=== PATIENT | female | born 1975 | race Caucasian/White ===

== ENCOUNTER 2016-11-26 13:39 | Emergency (ER) | payer SELFPAY ==
--- NOTE | 2016-11-26 13:53 | EDM.PDOC ---
ED HPI GI/ABDOMINAL - General Chief Complaint: Gastrointestinal Problem Stated Complaint: ABDOMINAL PAIN AND NAUSEA Time Seen by Provider: 11/26/16 13:49 Source of Information: Reports: Patient History Limitations: Reports: No limitations - History of Present Illness INITIAL COMMENTS - FREE TEXT/NARRATIVE: HISTORY AND PHYSICAL: History of present illness: [Patient comes to the emergency room complaining of abdominal pain and bloating. She has history of cholecystectomy in 2008. She has experienced "phantom gallbladder pains" since her surgery. Typically these pains last a couple of hours and resolve without incident. Takes tramadol that she has at home for when these pains occur. Today she is complaining of abdominal discomfort for the past 3 days. She describes the pain as being in in a horseshoe shape from her epigastric area down both sides of her abdomen. Pain radiates through to her mid back. She's also had some lower abdominal discomfort. Complains of a bloating in her abdomen. She's had episodes of vomiting, though none today. She hasn't felt well for the past several weeks and has had various cold symptoms. She had some diarrhea a couple of days ago but this resolved with taking Imodium. Today she is feeling mildly constipated and quite bloated. She took several tablets of Gas-X. She denies recent fever and chills. She's had no chest pain, shortness of breath or difficulty breathing. No swelling in her feet or lower legs. Has history of rheumatoid arthritis. Surgical history includes tonsillectomy, appendectomy, cholecystectomy, abdominal removal x2] Review of systems: As per history of present illness and below otherwise all systems reviewed and negative. Past medical history: As per history of present illness and as reviewed below otherwise noncontributory. Surgical history: As per history of present illness and as reviewed below otherwise noncontributory. Social history: No reported history of drug or alcohol abuse. Family history: As per history of present illness and as reviewed below otherwise noncontributory. Physical exam: HEENT: Atraumatic, normocephalic. Oral mucous membranes are pink and moist. Throat is clear. No lymphadenopathy, neck is supple. Lungs: Clear to auscultation, breath sounds equal bilaterally. Heart: S1S2, regular rate and rhythm. No murmur gallop click or rub. Abdomen: Bowel sounds are normoactive throughout. Abdomen is mildly distended. She is tender over the epigastric area, left upper right upper quadrants and suprapubic area. No masses guarding or rebound. Negative for costovertebral tenderness. Pelvis: Stable nontender. Genitourinary: Deferred. Rectal: Deferred. Extremities: Atraumatic, negative for cords or calf pain. No cyanosis or edema to feet or lower legs. Neurovascular unremarkable. Neuro: Awake, alert, oriented. Motor and sensory unremarkable throughout. Exam nonfocal. Diagnostics: [CBC, CMP, UA, urine , lipase, amylase, abdominal x-ray] Therapeutics: [IV normal saline 1 L IV] Impression: [Abdominal pain] Plan: [Discussed with patient that her lab results show no pancreatitis, infection, anemia or other abnormality. Her abdominal x-ray shows some gas but no constipation or obstruction. Discussed that her symptoms may of started with gastroenteritis and that her bloating developed from taking Imodium and Gas-X. Recommend she hold these medications push fluids brat diet and establish care with a local PCP. She is in agreement with today's plan all of her questions are answered and concerns are addressed.] Definitive disposition and diagnosis as appropriate pending reevaluation and review of above. - Related Data Allergies/ADRs: Allergies Allergy/AdvReac Type Severity Reaction Status Date / Time amoxicillin Allergy Anaphylactic Verified 11/26/16 13:54 Shock atropine [From Lomotil] Allergy Rash Verified 11/26/16 13:55 diphenoxylate [From Lomotil] Allergy Rash Verified 11/26/16 13:55 hydromorphone [From Dilaudid] Allergy Rash Verified 11/26/16 13:54 iodine Allergy Rash Verified 11/26/16 13:55 latex Allergy Rash Verified 11/26/16 13:55 penicillin G Allergy Anaphylactic Verified 11/26/16 13:54 Shock shellfish derived Allergy Rash Verified 11/26/16 13:55 Home Meds: Home Meds . [No Known Home Meds] 11/26/16 [History] ED ROS GENERAL - Review of Systems Review Of Systems: ROS reveals no pertinent complaints other than HPI. ED EXAM, GI/ABD - Physical Exam Exam: See Below Course - Vital Signs Last Recorded V/S: Last Vital Signs Temp 97.7 F 11/26/16 13:56 Pulse 95 11/26/16 13:56 Resp 18 11/26/16 13:56 BP 136/78 11/26/16 13:56 Pulse Ox 98 11/26/16 13:56 - Orders/Labs/Meds Orders: Active Orders 24 hr Category Date Time Status Sodium Chloride 0.9% [Saline Flush] Med 11/26/16 14:05 Active 10 ml FLUSH ASDIRECTED PRN Sodium Chloride 0.9% [Saline Flush] Med 11/26/16 14:05 Active 2.5 ml FLUSH ASDIRECTED PRN Saline Lock Insert [OM.PC] Stat Oth 11/26/16 14:05 Ordered Medication Orders Sodium Chloride (Saline Flush) 10 ml FLUSH ASDIRECTED PRN PRN Reason: Keep Vein Open Last Admin: 11/26/16 14:56 Dose: 10 ml Sodium Chloride (Saline Flush) 2.5 ml FLUSH ASDIRECTED PRN PRN Reason: Keep Vein Open Last Admin: 11/26/16 14:56 Dose: 2.5 ml Labs: Laboratory Tests 11/26/16 11/26/16 11/26/16 Range/Units 14:15 14:15 14:25 WBC 6.06 (4.0-11.0) K/uL RBC 4.70 (4.30-5.90) M/uL Hgb 13.8 (12.0-16.0) g/dL Hct 40.7 (36.0-46.0) % MCV 86.6 (80.0-98.0) fL MCH 29.4 (27.0-32.0) pg MCHC 33.9 (31.0-37.0) g/dL RDW Std Deviation 38.4 (28.0-62.0) fl RDW Coeff of Edward 12 (11.0-15.0) % Plt Count 246 (150-400) K/uL MPV 9.00 (7.40-12.00) fL Neut % (Auto) 61.8 (48.0-80.0) % Lymph % (Auto) 23.9 (16.0-40.0) % [place] % (Auto) 11.2 (0.0-15.0) % Eos % (Auto) 2.8 (0.0-7.0) % Baso % (Auto) 0.3 (0.0-1.5) % Neut # 3.7 (1.4-5.7) K/uL Lymph # 1.5 (0.6-2.4) K/uL [place] # 0.7 (0.0-0.8) K/uL Eos # 0.2 (0.0-0.7) K/uL Baso # 0.0 (0.0-0.1) K/uL Nucleated RBC % 0.0 /100WBC Nucleated RBCs # 0 K/uL Sodium (136-146) mmol/L Potassium (3.5-5.1) mmol/L Chloride (98-110) mmol/L Carbon Dioxide (21-31) mmol/L BUN (6.0-23.0) mg/dL Creatinine (0.6-1.5) mg/dL Est Cr Clr Drug Dosing mL/min Estimated GFR (MDRD) ml/min Glucose (60-110) mg/dL Calcium (8.8-10.8) mg/dL Total Bilirubin (0.1-1.5) mg/dL AST (5-40) IU/L ALT (8-54) IU/L Alkaline Phosphatase (40-150) Total Protein (6.0-8.0) g/dL Albumin (3.5-5.0) g/dL Globulin (2.0-3.5) g/dL Albumin/Globulin Ratio (1.3-2.8) Amylase (10-90) U/L Lipase (7-80) U/L Urine Color YELLOW Urine Appearance CLEAR Urine pH 5.5 (5.0-8.0) Ur Specific [place] 1.010 (1.001-1.035) Urine Protein NEGATIVE (NEGATIVE) mg/dL Urine Glucose (UA) NEGATIVE (NEGATIVE) mg/dL Urine Ketones NEGATIVE (NEGATIVE) mg/dL Urine Occult Blood TRACE-INTACT (NEGATIVE) Urine Nitrite NEGATIVE (NEGATIVE) Urine Bilirubin NEGATIVE (NEGATIVE) Urine Urobilinogen 0.2 (<2.0) EU/dL Ur Leukocyte Esterase NEGATIVE (NEGATIVE) Urine RBC 0-2 (0-2/HPF) Urine WBC 0-1 (0-5/HPF) Ur Epithelial Cells FEW (NONE-FEW) Urine Bacteria FEW (NEGATIVE) Urine HCG, Qual NEGATIVE (NEGATIVE) 11/26/16 Range/Units 14:25 WBC (4.0-11.0) K/uL RBC (4.30-5.90) M/uL Hgb (12.0-16.0) g/dL Hct (36.0-46.0) % MCV (80.0-98.0) fL MCH (27.0-32.0) pg MCHC (31.0-37.0) g/dL RDW Std Deviation (28.0-62.0) fl RDW Coeff of Edward (11.0-15.0) % Plt Count (150-400) K/uL MPV (7.40-12.00) fL Neut % (Auto) (48.0-80.0) % Lymph % (Auto) (16.0-40.0) % [place] % (Auto) (0.0-15.0) % Eos % (Auto) (0.0-7.0) % Baso % (Auto) (0.0-1.5) % Neut # (1.4-5.7) K/uL Lymph # (0.6-2.4) K/uL [place] # (0.0-0.8) K/uL Eos # (0.0-0.7) K/uL Baso # (0.0-0.1) K/uL Nucleated RBC % /100WBC Nucleated RBCs # K/uL Sodium 141 (136-146) mmol/L Potassium 3.6 (3.5-5.1) mmol/L Chloride 106 (98-110) mmol/L Carbon Dioxide 27 (21-31) mmol/L BUN 5 L (6.0-23.0) mg/dL Creatinine 0.8 (0.6-1.5) mg/dL Est Cr Clr Drug Dosing 81.53 mL/min Estimated GFR (MDRD) > 60.0 ml/min Glucose 85 (60-110) mg/dL Calcium 9.3 (8.8-10.8) mg/dL Total Bilirubin 0.4 (0.1-1.5) mg/dL AST 19 (5-40) IU/L ALT 20 (8-54) IU/L Alkaline Phosphatase 76 (40-150) Total Protein 7.4 (6.0-8.0) g/dL Albumin 4.0 (3.5-5.0) g/dL Globulin 3.4 (2.0-3.5) g/dL Albumin/Globulin Ratio 1.2 L (1.3-2.8) Amylase 61 (10-90) U/L Lipase 52 (7-80) U/L Urine Color Urine Appearance Urine pH (5.0-8.0) Ur Specific [place] (1.001-1.035) Urine Protein (NEGATIVE) mg/dL Urine Glucose (UA) (NEGATIVE) mg/dL Urine Ketones (NEGATIVE) mg/dL Urine Occult Blood (NEGATIVE) Urine Nitrite (NEGATIVE) Urine Bilirubin (NEGATIVE) Urine Urobilinogen (<2.0) EU/dL Ur Leukocyte Esterase (NEGATIVE) Urine RBC (0-2/HPF) Urine WBC (0-5/HPF) Ur Epithelial Cells (NONE-FEW) Urine Bacteria (NEGATIVE) Urine HCG, Qual (NEGATIVE) Meds: Medications Generic Name Dose Route Start Last Admin Trade Name Freq PRN Reason Stop Dose Admin Sodium Chloride 10 ml 11/26/16 14:05 11/26/16 14:56 Saline Flush FLUSH 10 ml ASDIRECTED PRN Administration Keep Vein Open Sodium Chloride 2.5 ml 11/26/16 14:05 11/26/16 14:56 Saline Flush FLUSH 2.5 ml ASDIRECTED PRN Administration Keep Vein Open Discontinued Medications Generic Name Dose Route Start Last Admin Trade Name Freq PRN Reason Stop Dose Admin Sodium Chloride 1,000 mls @ 999 mls/hr 11/26/16 14:33 11/26/16 14:55 Normal Saline IV 11/26/16 15:33 999 mls/hr STAT ONE Administration Departure - Departure Time of Disposition: 15:50 Disposition: Home, Self-Care 01 Condition: good Clinical Impression: Abdominal pain Qualifiers: Abdominal location: generalized Qualified Code(s): R10.84 - Generalized abdominal pain Instructions: Abdominal Pain, Adult, [id number] Referrals: PCP,None [Primary Care Provider] - Forms: ED Department Discharge Additional Instructions: The following information is given to patients seen in the emergency department who are being discharged to home. This information is to outline your options for follow-up care. We provide all patients seen in our emergency department with a follow-up referral. The need for follow-up, as well as the timing and circumstances, are variable depending upon the specifics of your emergency department visit. If you don't have a primary care physician on staff, we will provide you with a referral. We always advise you to contact your personal physician following an emergency department visit to inform them of the circumstance of the visit and for follow-up with them and/or the need for any referrals to a consulting specialist. The emergency department will also refer you to a specialist when appropriate. This referral assures that you have the opportunity for follow-up care with a specialist. All of these measure are taken in an effort to provide you with optimal care, which includes your follow-up. Under all circumstances we always encourage you to contact your private physician who remains a resource for coordinating your care. When calling for follow-up care, please make the office aware that this follow-up is from your recent emergency room visit. If for any reason you are refused follow-up, please contact the emergency department at and asked to speak to the emergency department charge nurse. Primary Care [address] [place] [id number] Establish care with a local primary care provider at the clinic listed above. Followup there in 48-72 hours. Push fluids, BRAT diet until feeling improved. Then, you may gradually increase as tolerated. Return to ER as needed as discussed. - My Orders Last 24 Hours: My Active Orders 11/26/16 14:05 Sodium Chloride 0.9% [Saline Flush] 10 ml FLUSH ASDIRECTED PRN Sodium Chloride 0.9% [Saline Flush] 2.5 ml FLUSH ASDIRECTED PRN Saline Lock Insert [OM.PC] Stat - Assessment/Plan Last 24 Hours: My Active Orders 11/26/16 14:05 Sodium Chloride 0.9% [Saline Flush] 10 ml FLUSH ASDIRECTED PRN Sodium Chloride 0.9% [Saline Flush] 2.5 ml FLUSH ASDIRECTED PRN Saline Lock Insert [OM.PC] Stat
[2016-11-26] MEDS ORDERED: Sodium Chloride 0.9% 10 ML Syringe FLUSH PRN (14:05)
[2016-11-26] MEDS ORDERED: Sodium Chloride 0.9% 2.5 ML Syringe FLUSH PRN (14:05)
[2016-11-26] MEDS ORDERED: Sodium Chloride 0.9% 1,000 ML IV ONE (14:33)
[2016-11-26 14:59] LABS: CHLORIDE,CL 106 mmol/L (98-110); SODIUM,NA 141 mmol/L (136-146)
--- NOTE | 2016-11-26 15:32 | CR ---
EXAMINATION: Abdomen HISTORY: Pain COMPARISON: None TECHNIQUE: AP and upright views FINDINGS: There is no free air under the diaphragm. There is a nonobstructive bowel gas pattern note d. No abnormal calcifications project over the kidneys. Cholecystectomy clips are present. Visualize d osseous structures appear normal. IMPRESSION: Unremarkable abdominal films.
[2016-11-26 16:07] VITALS: BP 104/59
== END 2016-11-26 16:03 | disposition home or self-care (01) ==
LOC: MW.ED 13:39
DX: R10.84 Generalized abdominal pain (principal); R10.13 Epigastric pain; Z98.890 Other specified postprocedural states; Z90.89 Acquired absence of other organs; Z90.49 Acquired absence of other specified parts of digestive tract; Z88.0 Allergy status to penicillin; Z88.6 Allergy status to analgesic agent; Z91.040 Latex allergy status; Z91.013 Allergy to seafood
CPT/HCPCS: 36415; 74020; 80053; 81001; 81025; 82150; 83690; 85025; 96360; 99284; J7040; 99282